=== PATIENT | female | born 1970 | race Caucasian/White ===

== ENCOUNTER → 2016-07-20 | Outpatient (CLI) | payer OTHER ==
--- NOTE | 2016-07-20 08:53 | RADIOLOGY REPORT PS360 ---
US RUQ-(ABD LTD)1ORGAN/QUAD/FU HISTORY: RUQ PAIN ORDERING PHYSICIAN: Domingo Elizabeth MD PATIENT AGE: 45 years COMPARISON: None FINDINGS: PANCREAS: Unremarkable. No obvious mass or abnormal fluid collection. No ductal dilatation LIVER: No focal liver lesions demonstrated. Homogeneous echogenicity. No intrahepatic biliary ductal dilatation evident RIGHT KIDNEY: Unremarkable. Normal size and echogenicity. No hydronephrosis GALLBLADDER: There is a small focal area of increased echogenicity along the wall the gallbladder measuring 3 mm. This never really moves or shadows. This may be due to small polyp or a small nonshadowing adherent stone . Common bile duct is normal at 2 mm. No gallbladder wall thickening. IMPRESSION: 1. Small polyp versus nonshadowing adherent stone otherwise negative gallbladder ultrasound
== END ==
LOC: RAD 07:31
DX: R10.11 Right upper quadrant pain (principal)